=== PATIENT | female | born 1965 | race Caucasian/White ===

== ENCOUNTER → 2020-12-27 | Day surgery (SDC) | payer OTHER ==
[~2020-12-27] VITALS: Ht 160 cm; Wt 104.3 kg
[~2020-12-27] MED LIST: ALPRAZOLAM 0.0.25 M1 PO; CONSTULOSE10 GM/152 PO; ESCITALOPRAM OX20 MG PO; FUROSEMIDE 20 M20 M1 PO; HYDROCODON-ACE1 EAC7 PO; NYSTATIN100000 UNI SW&SWALLOW; OMEPRAZOLE 20 M20 M1 PO; ONDANSETRON HCL4 M3 PO; PROAIR HFA8.5 GM INH; SPIRONOLACTONE50 MG PO; STIOLTO RESPIMAT4 GM INH; WELLBUTRIN SR150 MG PO; XIFAXAN550 M1 PO
[2020-12-27 12:51] LABS: HEMATOCRIT 33.9 % (37.0-47.0); HEMOGLOBIN 11.5 gm/dL (12.0-15.0); MCH 35.8 pg (26.0-34.0); MCHC 33.9 g/dL (28.0-37.0); MCV 105.5 fL (80.0-100.0); RBC 3.21 mil/uL (4.20-5.00); RDW 15.1 % (10.5-14.5); WBC 6.7 thou/uL (4.0-11.0)
[2020-12-27 12:59] LABS: CALCIUM 8.5 mg/dL (8.5-10.1); CREATININE 1.8 mg/dL (0.6-1.0)
[2020-12-27 13:00] VITALS: BP 102/54
--- NOTE | 2020-12-27 13:37 | EKG ---
[address] [place] [address] ELECTROCARDIOGRAM REPORT Name: BONG WHITE Room #: REG [facility]#: [id number] Admission: 12/27/20 Attend Phys: Colt Hooks MD Discharge: Date of : 69 Report #: [id number] [facility] Test Date: 2020-12-27 Test Time: 12:18:50 Pat Name: BONG CHRISTOPHER Department: Room: Gender: F Bee Farmer: ERICA : 1965 Requested By: Colt Hooks Order Number: [id number] MD: Zac Sharma Measurements Intervals Ranger Rate: 74 P: 15 [place]: 147 QRS: 41 QRSD: 78 T: 41 QT: 360 QTc: 400 Interpretive Statements Sinus rhythm Low voltage, precordial leads No previous ECG available for comparison Electronically Signed On 12-27-2020 13:36:45 CDT by Zac Sharma [email or web address] <ELECTRONICALLY SIGNED> By: Zac Sharma MD, [facility] 12/27/20 1336 1218 1218 Zac Sharma MD, FACC /EPI
[2020-12-27 13:52] LABS: INR 1.18; PROTIME 12.8 Seconds (10.5-12.1)
== END | disposition home or self-care (01) ==
LOC: OR 08:47
PROVIDERS: Anesthesiology; ATTEND Otolaryngology
DX: J34.2 Deviated nasal septum (principal); Z53.9 Procedure and treatment not carried out, unspecified reason; E87.5 Hyperkalemia; J45.909 Unspecified asthma, uncomplicated; K21.9 Gastro-esophageal reflux disease without esophagitis; F32.9 Major depressive disorder, single episode, unspecified; F41.9 Anxiety disorder, unspecified; K76.89 Other specified diseases of liver; F17.210 Nicotine dependence, cigarettes, uncomplicated; Z98.890 Other specified postprocedural states; Z20.822 Contact with and (suspected) exposure to COVID-19; Z79.899 Other long term (current) drug therapy; Z85.828 Personal history of other malignant neoplasm of skin
CPT/HCPCS: 50010

== ENCOUNTER 2020-12-29 11:58 | Inpatient (IN) | payer OTHER ==
[~2020-12-29] VITALS: Ht 160 cm; Wt 108.9 kg
[~2020-12-29 11:58] MED LIST changes: -NYSTATIN100000 UNI SW&SWALLOW
[2020-12-29 12:35] VITALS: BP 116/51
[2020-12-29 13:42] LABS: HEMATOCRIT 33.6 % (37.0-47.0); HEMOGLOBIN 11.3 gm/dL (12.0-15.0); MCH 34.9 pg (26.0-34.0); MCHC 33.7 g/dL (28.0-37.0); MCV 103.7 fL (80.0-100.0); RBC 3.24 mil/uL (4.20-5.00); RDW 15.2 % (10.5-14.5); WBC 7.7 thou/uL (4.0-11.0)
[2020-12-29 13:52] LABS: CALCIUM 8.1 mg/dL (8.5-10.1); CREATININE 1.6 mg/dL (0.6-1.0)
[2020-12-29 13:56] LABS: INR 1.16; PROTIME 12.6 Seconds (10.5-12.1)
[2020-12-29 13:58] LABS: ALBUMIN 1.9 g/dL (3.4-5.0); TOTAL BILIRUBIN 1.6 mg/dL (0.2-1.0); TOTAL PROTEIN 6.9 g/dL (6.4-8.2)
--- NOTE | 2020-12-29 14:48 | NUR ---
Pt direct admission from home. Pt a&ox4. ENT consulted. Potassium 6.0 on lab draw. ENT doctor and hospitalist notified. New orders noted. Pt tentativelly having nasal reconstruction tomorrow is potassium level stabilizes. Admission completed. Family at bedside. Call light within reach. Fall precautions in place. Will continue to monitor.
[2020-12-29 17:39] VITALS: BP 114/60
[2020-12-29 21:12] VITALS: BP 119/68
--- NOTE | 2020-12-30 02:56 | NUR ---
PT ASSESSED AT START OF SHIFT. RESTING IN BED DENIES NEED FOR PAIN MEDICATION. NPO AT MIDNIGHT FOR SX TOMORROW. FALL PREC IN PLACE. PT UP WITH SBA TO THE BATHROOM. WILL CONT TO MONITOR TILL EOS.
[2020-12-30 05:31] VITALS: BP 130/58
[2020-12-30 06:51] LABS: CREATININE 1.6 mg/dL (0.6-1.0); POTASSIUM 5.2 mmol/L (3.5-5.1)
[2020-12-30 10:49] LABS: HEMATOCRIT 31.8 % (37.0-47.0); HEMOGLOBIN 10.8 gm/dL (12.0-15.0); MCH 35.6 pg (26.0-34.0); MCV 104.7 fL (80.0-100.0); RBC 3.04 mil/uL (4.20-5.00); RDW 15.1 % (10.5-14.5); WBC 6.7 thou/uL (4.0-11.0)
[2020-12-30 10:53] LABS: CALCIUM 7.9 mg/dL (8.5-10.1); CREATININE 1.6 mg/dL (0.6-1.0); POTASSIUM 5.3 mmol/L (3.5-5.1)
[2020-12-30 11:07] LABS: ALBUMIN 1.8 g/dL (3.4-5.0); TOTAL BILIRUBIN 1.9 mg/dL (0.2-1.0); TOTAL PROTEIN 6.5 g/dL (6.4-8.2)
[2020-12-30 11:30] LABS: INR 1.2
[2020-12-30 11:56] VITALS: BP 116/50
--- NOTE | 2020-12-30 15:36 | NUR ---
A/O X 4. Room air. One assist with transfers. Right forearm IV. she is currently downstairs in surgery.
[2020-12-30 18:00] VITALS: BP 103/54
[2020-12-30 20:02] VITALS: BP 112/56
[2020-12-31 03:19] VITALS: BP 106/59
--- NOTE | 2020-12-31 06:53 | O ---
[facility] [place] [address] OPERATIVE REPORT Name: WHITEBONG Room #: 447-P [facility] M.R.#: [id number] Admission: 12/29/20 Attend Phys: Valente Murphy MD Discharge: Date of : 69 Report #: [id number] THIS REPORT FOR: cc: Physician not on staff Physician not on staff Colt Hooks MD ~ cc: Kiko Lara DATE OF SERVICE: 12/30/2020 DATE OF SURGERY: 12/30/2020 PREOPERATIVE DIAGNOSES: 1. Left nasal basal cell carcinoma. 2. Full-thickness Mohs defect, left nasal ala, approximately 2.5 x 1.5 cm. POSTOPERATIVE DIAGNOSES: 1. Left nasal basal cell carcinoma. 2. Full-thickness Mohs defect, left nasal ala, approximately 2.5 x 1.5 cm. PROCEDURES PERFORMED: 1. Scar contracture release of the face. 2. Adjacent tissue transfer of the nose, less than 10 square cm. 3. Nasal labial interpolated flap to nose. 4. Conchal cartilage graft harvest to nose. PRIMARY SURGEON: Colt Hooks M.D. RETAIL LEASING AGENT: None. ANESTHESIA: General. COMPLICATIONS: None. ESTIMATED BLOOD LOSS: Approximately 20 mL SPECIMENS: None. INDICATIONS FOR THE PROCEDURE: The patient is a 55-year-old female with a history of cutaneous malignancy and also notably end-stage liver failure on a transplant list, who underwent Mohs micrographic excision for basal cell carcinoma of the left nasal ala, which resulted in a complex full-thickness defect of the ala. She was referred to me for reconstruction. After control of her comorbidities, she was scheduled for surgery today. She signed consent in the office. [address] [address] OPERATIVE REPORT Name: WHITEBONG Room #: 447-P [facility] ..#: [id number] Admission: 12/29/20 Attend Phys: Valente Murphy MD Discharge: Date of : 69 Report #: [id number] DESCRIPTION OF THE PROCEDURE: The patient was identified in the preoperative area before being transported to the operating room and placed supine on the operating table. At this point, general endotracheal anesthesia was induced and a timeout was called to ensure the patient identity and procedure to be performed. First, the entire nose, forehead, and left cheek were injected with 1% lidocaine 1:100,000 epinephrine solution, totalling 20 mL. Next, the patient was prepped and draped in the normal sterile fashion and the bed was rotated 90 degrees. Starting first, I debrided some scar tissue and old scab blood from the wound bed to prepare it for inset of the reconstructive flap. Next, I turned attention to the internal lining of the nose. For this, I performed a combination of a sidewall mucosal release with a back cut and the interpolated cheek flap, which I will dictate in a moment. At this point, the mucosa and skin were elevated off the undersurface of the upper lateral cartilage and a back cut was performed along the sidewall just superior to the insertion of the inferior turbinate. This allowed enough extension towards the caudal end of the alar defect to allow eventual suturing to the reconstructive flap. Next, I harvested the conchal cartilage from the patient's left ear. An incision was made on the anterior surface of the conchal bowl and the entire conchal cartilage was harvested in a subperichondrial plane. After this was harvested, hemostasis was achieved with bipolar cautery and this was closed using 5-0 chromic suture in a running fashion followed by quilting sutures through and through to coapt the space. At this point, I fashioned 2 cartilage grafts, one for an alar rim graft and a secondary one to support the nasal sidewall. These were inserted into subcutaneous pockets that were created with a tenotomy scissor and sutured into position using 5-0 nylon suture. Once this was completed and after evaluating the wound very closely, I elected to perform a left nasolabial interpolated flap. A template was formed using foil and transferred to the inferior aspect of the nasolabial fold. This was then sharply incised with a #15 blade and elevated very gently in the subcutaneous plane up to the alar facial junction, leaving a very thick pedicle base to preserve the vasculature. The flap was then thinned over the inset area and then transferred into position as an interpolated flap. Adjustments were made to the flap thickness to match as closely as possible. At this point, the inner lining was closed using 5-0 chromic suture to the nasal mucosa and the outer skin was closed in interrupted fashion using 5-0 nylon suture. Once this was completed, attention was then turned back to the patient's left cheek. This was cauterized to achieve hemostasis and closed in layers using 3-0 Vicryl in the deep layer, followed by 5-0 running locking nylon along the patient's cheek. At this point, I was very pleased with the functional and cosmetic outcome of the patient's reconstructive flap. The patient was cleaned thoroughly. Antibiotic ointment and Xeroform were applied to the patient's incision and pedicle. She was reversed from anesthesia and transported to the PACU in stable condition. Please note that all instrument, sponge, and needle counts were correct x2. DISPOSITION: The patient is under the care of the hospitalist team for control [address] [place] [address] OPERATIVE REPORT Name: BONG WHITE Room #: 447-P [facility] M.R.#: [id number] Admission: 12/29/20 Attend Phys: Valente Murphy MD Discharge: Date of : 69 Report #: [id number] of her comorbidities and she will go back on their service postoperatively; however, I am okay with her being discharged as they see fit and I will defer to their better judgment on when she should be discharged home. She may shower in 24 hours and she may get the area wet and soapy after 24 hours. She should clean it at minimum of 3 times per day starting on postoperative day 1, pat it dry and cover with a thick layer of Vaseline ointment at least 3 times per day. She should not engage in any strenuous activity or heavy lifting. She is slated to undergo visits for liver transplantation at the [facility]. It is okay for her to travel. She may use nasal saline spray as needed for any nasal congestion and crusting in the left and right nasal cavities. <ELECTRONICALLY SIGNED> By: Colt Hooks MD 12/31/20 0653 1500 1827 Colt oHoks MD /nt
[2020-12-31 07:12] VITALS: BP 101/53
[2020-12-31 07:25] LABS: CALCIUM 8.2 mg/dL (8.5-10.1); CREATININE 2.1 mg/dL (0.6-1.0)
[2020-12-31 07:27] LABS: POTASSIUM 6.2 mmol/L (3.5-5.1)
--- NOTE | 2020-12-31 15:42 | NUR ---
A/O X 4. Room air. Stand by assist with transfers. Has sutures along left side of nose. Polysorin appiled. Crucible given for pain 1500. at bedside. Nurse completed discharge teaching with patient and . Left forearm IV removed and pressure appiled and gauze applied. D/C papers given to patient.
--- NOTE | 2020-12-31 15:58 | NUR ---
ASSESSMENT: CM REVIEWED CHART AND MET WITH PATIENT AT THE BEDSIDE. PT IS ALERT AND ORIENTED X4. PT REPORTS LIVING IN A HOUSE WITH , ADULT SON, HIS AND THEIR 2 CHIDREN. PT REPORTS SHE HAS ABOUT 16 STEPS WITH HANDRAILS BUT HER FAMILY IS ABLE TO ASSIST HER UP THERE. PT REPORTS SHE HAS A WALKER AT HOME WELL A GRAB BAR AND SHOWER CHAIR AND REPORTS HER FAMILY ASSIST HER AT ANY TIME. PT IS S/P NASAL RECONSTRUCTION DUE TO BASAL CELL CARCINOMA. PT REPORTS SHE IS END CLARENCE LIVER DISEASE AND GETS A PARACENTESIS WEEKLY AT [facility] AND IS ALSO ON THE TRANSPLANT LIST. PT REPORTS SHE SHOULD HAVE NO NEEDS FROM CM PRIOR TO DISCHARGE. PT IS TO DISCHARGE HOME TODAY.
[2020-12-31] MEDS ORDERED: NYSTATIN100000 UNI SW&SWALLOW (19:14)
== END 2020-12-31 17:26 | disposition home or self-care (01) | DRG 579 ==
LOC: 4W 11:58 → 4S 12:19
PROVIDERS: Anesthesiology; Hospitalist; ADMIT Internal Medicine; ATTEND Internal Medicine
PROC: 0HN Skin and Breast, Release (ICD-10-PCS; principal; 2020-12-30)
PROC: 0JR107Z Replacement of Face Subcutaneous Tissue and Fascia with Autologous Tissue Substitute, Open Approach (ICD-10-PCS; principal; 2020-12-30)
DX: Z42.8 Encounter for other plastic and reconstructive surgery following medical procedure or healed injury (principal); E43 Unspecified severe protein-calorie malnutrition; C44.311 Basal cell carcinoma of skin of nose; K72.90 Hepatic failure, unspecified without coma; F32.9 Major depressive disorder, single episode, unspecified; F41.9 Anxiety disorder, unspecified; F17.200 Nicotine dependence, unspecified, uncomplicated; K21.9 Gastro-esophageal reflux disease without esophagitis; E87.5 Hyperkalemia; N18.31 Chronic kidney disease, stage 3a; J44.9 Chronic obstructive pulmonary disease, unspecified; K74.60 Unspecified cirrhosis of liver; Z88.8 Allergy status to other drugs, medicaments and biological substances; Z79.899 Other long term (current) drug therapy; Z98.891 History of uterine scar from previous surgery
CPT/HCPCS: 10102; 50010; 50101; 50386; 50403; 51316; 51412; 51636; 56524; 56526; 56527; 56531; 57006; 62110; 62900; 70005

== ENCOUNTER 2021-04-11 06:13 | Day surgery (SDC) | payer OTHER ==
[~2021-04-11] VITALS: Ht 160 cm; Wt 80.3 kg
--- NOTE | ~2021-04-11 | O ---
[facility] [place] [address] OPERATIVE REPORT Name: BONG WHITE Room #: 150-2 [facility]#: [id number] Admission: 04/11/21 Attend Phys: Colt Hooks MD Discharge: Date of : 69 Report #: [id number] THIS REPORT FOR: cc: FAM - Family physician unknown FAM - Family physician unknown Colt Hooks MD ~ DATE OF SERVICE: 04/11/2021 PREOPERATIVE DIAGNOSES: 1. Basal cell carcinoma, left nasal ala. 2. Mohs defect, left nasal ala. 3. Chronic liver failure, status post liver transplantation. POSTOPERATIVE DIAGNOSES: 1. Basal cell carcinoma, left nasal ala. 2. Mohs defect, left nasal ala. 3. Chronic liver failure, status post liver transplantation. PROCEDURE PERFORMED: Division and inset of nasolabial flap to nose. PRIMARY SURGEON: Colt Hooks MD ARTIFICIAL BREEDING DISTRIBUTOR: None. TYPE OF ANESTHESIA: General. COMPLICATIONS: None. ESTIMATED BLOOD LOSS: 5 mL. SPECIMENS: None. INDICATIONS: The patient is a 56-year-old male who underwent Mohs excision of a basal cell carcinoma of the left nasal ala several months ago, which resulted in a complex full-thickness defect, which was initially repaired by myself using a left nasolabial interpolated flap. The patient was not able to undergo division and inset at the normal time given that she received a liver transplant in the interim and was not in the local area. Therefore, this was delayed by several additional weeks. She signed consent in the office for the above-named procedure. DESCRIPTION OF PROCEDURE: The patient was identified in the preoperative area before being transported to the operating room and placed supine on the operating table. At this point, general anesthesia was induced and an LMA was inserted. A timeout was called to ensure patient identity and procedure to be performed, and all were in agreement. First, the left nasolabial flap was [address] [address] OPERATIVE REPORT Name: CHRISTOPHERBONG Room #: 150-2 [facility]#: [id number] Admission: 04/11/21 Attend Phys: Colt Hooks MD Discharge: Date of : 69 Report #: [id number] marked and injected locally with 1% lidocaine with 1:100,000 epinephrine solution. The patient was then prepped and draped in normal sterile fashion. Starting first, a mosquito clamp was inserted underneath the flap pedicle and a #15 blade was used to sharply incise the flap pedicle and remove its proximal portion. This area was slightly undermined and closed in layers using a 5-0 Vicryl and a 5-0 fast absorbing gut suture in the nasolabial crease. Attention was then turned to the left alar nasolabial flap. This area was thinned somewhat and trimmed to match the defect more closely and then suture closed in layers using 5-0 Vicryl and 5-0 fast absorbing gut around its periphery. The flap was healthy and vital at the end of surgery with good capillary refill; however, was slightly ecchymotic due to tissue handling. The patient was then reversed from anesthesia and transported to the PACU in stable condition. Please note that all instrument, sponge and needle counts were correct x2. DISPOSITION: The patient may be discharged after meeting general discharge criteria. She has been given prescriptions for pain medication and antibiotics to be taken as directed. I will see her in approximately 10-14 days' time for postoperative wound check. They may call our office with any issues. By: 1110 1137 Colt Hooks MD /nt
[~2021-04-11 06:13] MED LIST changes: +BACTRIM DS TAB1 EACH PO; +CALCIUM 600 +1 EA11 PO; +MULTI VITAMIN1 EACH PO; +MYCOPHENOLIC A360 MG PO; +NYSTATIN100000 UNI SW&SWALLOW; +PREDNISONE 5 MG5 MG PO; +PROTONIX40 M2 PO; +SLOW-MAG64 M1 PO; +TACROLIMUS1 MG PO; +TYLENOL325 MG PO; +VALGANCICLOVIR450 MG PO; +VITAMIN D3125 MC1 PO
[2021-04-11 07:40] VITALS: BP 142/69
[2021-04-11 12:27] VITALS: BP 142/69
== END 2021-04-11 12:27 | disposition home or self-care (01) ==
LOC: OR 06:13 → TBA 06:20 → OR 10:01
PROVIDERS: ATTEND Otolaryngology
DX: C44.311 Basal cell carcinoma of skin of nose (principal); M95.0 Acquired deformity of nose; K72.10 Chronic hepatic failure without coma; J43.9 Emphysema, unspecified; F32.9 Major depressive disorder, single episode, unspecified; F41.9 Anxiety disorder, unspecified; K21.9 Gastro-esophageal reflux disease without esophagitis; F17.210 Nicotine dependence, cigarettes, uncomplicated; Z85.820 Personal history of malignant melanoma of skin; Z85.89 Personal history of malignant neoplasm of other organs and systems; Z88.8 Allergy status to other drugs, medicaments and biological substances
CPT/HCPCS: 50010; 50101; 50386; 50403; 51412; 56526; 56528; 57006; 62110; 62900; 64037; 70005